=== PATIENT | female | born 1960 | race African-American/Black ===

== ENCOUNTER 2017-02-13 18:04 | Inpatient (IN) | payer OTHER ==
[2017-02-13 19:03] VITALS: BMI 29.3
[2017-02-13] MEDS ORDERED: METHADONE HCL 10 MG TABLET (FOR DETOX USE ONLY) PO ONE ×2 (19:15→23:00)
[2017-02-13] MEDS ORDERED: ACETAMINOPHEN 325 MG TABLET (FP) PO PRN (19:15)
[2017-02-13] MEDS ORDERED: MAGNESIUM HYDROX 2400MG/30ML ORAL SUSPENSION 30 ML CUP PO PRN (19:15)
[2017-02-13] MEDS ORDERED: MAG HYDROX/AL HYDROX/SIMETH 30 ML UNIT-DOSE CUP PO PRN (19:15)
[2017-02-13] MEDS ORDERED: MENTHOL/PHENOL 1 EACH UD MM PRN (19:15)
[2017-02-13] MEDS ORDERED: MAGNESIUM CITRATE 300 ML BOTTLE PO PRN (19:15)
[2017-02-13] MEDS ORDERED: guaiFENesin/D-METHORPHAN HB 10 ML UNIT-DOSE CUPS PO PRN (19:15)
[2017-02-13] MEDS ORDERED: P-EPHED 60MG/TRIPROLIDI 2.5MG TABLET PO PRN (19:15)
[2017-02-13] MEDS ORDERED: LOPERAMIDE HCL 2 MG CAPSULE PO PRN (19:15)
[2017-02-13] MEDS ORDERED: ALBUTEROL SO4 6.7 GM HFA INHALER IH PRN (19:19)
[2017-02-13] MEDS ORDERED: ALBUTEROL SO4 2.5/IPRATROPIUM 0.5 INH SOL 3 ML VIAL.NEB. NEB PRN (19:20)
--- NOTE | 2017-02-13 19:31 | HP ---
COWS - Scale Resting Pulse: 2= [place] 101-120 Sweatin= Chills/Flushing Restless Observation: 1= Difficult to Sit Still Pupil Size: 0= Normal to Room Light Bone or Joint Aches: 2= Severe Diffuse Aches Runny Nose/ Eye Tearin= Nasal Congestion GI Upset > 30mins: 3= Vomiting/Diarrhea Tremor Observation: 2= Slight Tremor Visible Yawning Observation: 0= None Anxiety or Irritability: 2=Irritable/Anxious Goose Flesh Skin: 0=Smooth Skin COWS Score: 14 Admission ROS S - HPI Chief Complaint: withdrawal sx patient reported right foot 2nd and 3rd toes fx on 02/03/17, left cane / walker at home, 2006 first detox second detox "I do not remember" never rehab, on disability since 2014, Allergies/Adverse Reactions: Allergies Allergy/AdvReac Type Severity Reaction Status Date / Time pistachio nut Allergy Severe Rash Verified 02/13/17 18:54 No Known Drug Allergies Allergy Verified 02/13/17 18:54 LATEX Allergy Severe Itching Uncoded 02/13/17 18:54 History of Present Illness: 56 years old female with long history of opium dependence has hypertension, history of diabetes last metformin 2014, history of hepatitis c no treatment " it went away", hyperlipidemia, hypertension and gerd, patient preferred taking anything at night before bed "I always take my medication at night" Exam Limitations: No Limitations - Ebola screening Have you traveled outside of the country in the last 21 days: No Have you had contact with anyone from an Ebola affected area: No Have you been sick,other than usual withdrawal symptoms: No Do you have a fever: No - Review of Systems Constitutional: Chills, Changes in sleep, Weight Stable EENT: reports: No Symptoms Reported Respiratory: reports: No Symptoms reported Cardiac: reports: No Symptoms Reported GI: reports: Nausea, Poor Fluid Intake, Vomiting, Indigestion, Abdominal cramping : reports: No Symptoms Reported Musculoskeletal: reports: Back Pain, Joint Pain, Muscle Pain, Neck Pain Integumentary: reports: Lesions (left inner leg 08/2016 single) Neuro: reports: Tremors Endocrine: reports: No Symptoms Reported Hematology: reports: No Symptoms Reported Psychiatric: reports: Judgement Intact, Orientated x3, Depressed Other Systems: Reviewed and Negative Patient History - Patient Medical History Hx Anemia: No Hx Asthma: Yes Hx Chronic Obstructive Pulmonary Disease (COPD): No Hx Cancer: Yes (left breast 2012) Hx Cardiac Disorders: No Hx Congestive Heart Failure: No Hx Hypertension: Yes (x 5 years aspirin) Hx Hypercholesterolemia: Yes Hx Pacemaker: No HX Cerebrovascular Accident: No Hx Seizures: No Hx Dementia: No Hx Diabetes: Yes (x 3 years treated with metformin last dose 2014) Hx Gastrointestinal Disorders: Yes (gerd) Hx Liver Disease: No Hx Genitourinary Disorders: No Hx Sexually Transmitted Disorders: No Hx Renal Disease (ESRD): No Hx Thyroid Disease: No Hx Human Immunodeficiency Virus (HIV): No Hx Hepatitis C: Yes Hx Depression: Yes Hx Suicide Attempt: No Hx Bipolar Disorder: No Hx Schizophrenia: No - Patient Surgical History Past Surgical History: Yes Hx Neurologic Surgery: No Hx Cataract Extraction: No Hx Cardiac Surgery: No Hx Lung Surgery: No Hx Breast Surgery: Yes (left 2012 ) Hx Breast Biopsy: Yes (left 2012) Hx Abdominal Surgery: No Hx Appendectomy: No Hx Cholecystectomy: No Hx Genitourinary Surgery: No Hx Orthopedic Surgery: No Anesthesia Reaction: No - PPD History Previous Implant?: Yes Documented Results: Negative w/o proof Implanted On Prior [facility] Admission?: No PPD to be Administered?: Yes - Reproductive History Patient is a Female of Child Bearing Age (11 -55 yrs old): No Last Menstrual Period: 02/13/07 Patient : No - Smoking Cessation Smoking history: Never smoked Have you smoked in the past 12 months: No Hx Chewing Tobacco Use: No Initiated information on smoking cessation: No - Substance & Tx. History Hx Alcohol Use: No Hx Substance Use: Yes Substance Use Type: Heroin, Opiates Hx Substance Use Treatment: Yes (2006 [facility]) - Substances Abused oxycodon Route: Oral Frequency: Daily Amount used: 100 mg Age of first use: 49 Date of Last Use: 02/12/17 percocet Route: Oral Frequency: Daily Amount used: 100 mg Age of first use: 55 Date of Last Use: 02/12/17 Oxycodone Route: Oral Frequency: Daily Amount used: 100mg Age of first use: 52 Date of Last Use: 02/12/17 morphine sulfate Route: Oral Frequency: Daily Amount used: 4 of 60mg Age of first use: 55 Date of Last Use: 02/12/17 Family Disease History - Family Disease History Family Disease History: CA: Father (), Mother () Admission Physical Exam S - Vital Signs Vital Signs: Vital Signs - 24 hr 02/13/17 18:57 Temperature 97.0 F L Pulse Rate 109 H Respiratory 20 Rate Blood Pressure 131/101 - Physical General Appearance: Yes: Appropriately Dressed, Mild Distress, Obese, Tremorous , Irritable, Sweating, Anxious HEENTM: Yes: Hearing grossly Normal, Normal ENT Inspection, Normocephalic, Normal Voice Respiratory: Yes: Chest Non-Tender, Lungs Clear, Normal Breath Sounds, No Respiratory Distress, No Accessory Muscle Use Neck: Yes: Supple, Trachea in good position Breast: Yes: Breasts Symetrical Cardiology: Yes: Regular Rhythm, S1, S2, Tachycardia Abdominal: Yes: Non Tender, Soft Genitourinary: Yes: Within Normal Limits Back: Yes: Normal Inspection Musculoskeletal: Yes: Gait Steady, Back pain, Muscle Pain, Muscle weakness ( right foot 2nd and 3rd toes fx on 02/03/17 treated at [facility] discharged with cane and [place]) Extremities: Yes: Non-Tender, Tremors, Other (right foot [place]) Neurological: Yes: Fully Oriented, Alert, Normal Response, Depressed Affect Integumentary: Yes: Warm, Rash (old left inner leg - singles) Lymphatic: Yes: Within Normal Limits - Diagnostic (1) Opioid dependence with withdrawal Current Visit: Yes Status: Acute (2) Hypertension Current Visit: Yes Status: Chronic Qualifiers: Hypertension type: essential hypertension Qualified Code(s): I10 - Essential (primary) hypertension (3) History of diabetes mellitus, type II Current Visit: Yes Status: Resolved (4) GERD (gastroesophageal reflux disease) Current Visit: Yes Status: Chronic Qualifiers: Esophagitis presence: without esophagitis Qualified Code(s): K21.9 - Gastro-esophageal reflux disease without esophagitis (5) History of hepatitis C Current Visit: Yes Status: Resolved (6) Depression Current Visit: Yes Status: Suspected Qualifiers: Depression Type: dysthymia Qualified Code(s): F34.1 - Dysthymic disorder (7) Asthma Current Visit: Yes Status: Chronic Qualifiers: Asthma severity: mild intermittent Asthma complication type: with status asthmaticus Qualified Code(s): J45.22 - Mild intermittent asthma with status asthmaticus (8) Hyperlipidemia Current Visit: Yes Status: Chronic Qualifiers: Hyperlipidemia type: pure hypercholesterolemia Qualified Code(s): E78.00 - Pure hypercholesterolemia, unspecified; E78.0 - Pure hypercholesterolemia (9) Neuropathy of leg Current Visit: Yes Status: Chronic Qualifiers: Laterality: bilateral Qualified Code(s): G57.93 - Unspecified mononeuropathy of bilateral lower limbs (10) Use of cane as ambulatory aid Current Visit: Yes Status: Acute Comment: fx right foot 2nd 3rd toes on 02/03/17 Cleared for Admission [facility] - Detox or Rehab [facility] Level of Care: Medically Managed Detox Regimen/Protocol: Methadone [facility] Breath Alcohol Content Breath Alcohol Content: 0 Urine Pregancy Test - Result Urine Test Results: Negative- NO Line Present Urine Drug Screen - Results Urine Drug Screen Results: OPI-Opiates, MET-Methamphetamine, TCA-Tricyclic Antidepress, OXY-Oxycodone
[2017-02-13] MEDS: diazePAM 5 MG TABLET PO PRN (20:19)
[2017-02-13] MEDS ORDERED: ATORVASTATIN CA 20 MG TABLET (FP) PO SCH (22:00)
[2017-02-13] MEDS ORDERED: MONTELUKAST NA 10 MG TABLET PO SCH (22:00)
[2017-02-13] MEDS: RANITIDINE HCL 150 MG TABLET (FP) PO SCH (22:27)
[2017-02-13] MEDS: THIAMINE HCL 100 MG TABLET (FP) PO SCH (22:27)
[2017-02-13] MEDS: ASPIRIN 81 MG CHEWABLE TABLETS PO SCH (22:27)
[2017-02-13] MEDS: GABAPENTIN 100 MG CAPSULE (FP) PO SCH (22:27)
[2017-02-13] MEDS: diphenhydrAMINE HCL 50 MG CAPSULE PO PRN (22:28)
[2017-02-14] MEDS: diazePAM 5 MG TABLET PO PRN ×3 (07:03→17:52)
--- NOTE | 2017-02-14 08:55 | PN ---
BHS COWS - Scale Resting Pulse: 1= [place] 81-100 Sweatin=Flushed/Facial Moisture Restless Observation: 1= Difficult to Sit Still Pupil Size: 0= Normal to Room Light Bone or Joint Aches: 2= Severe Diffuse Aches Runny Nose/ Eye Tearin= Runny Nose/Eyes GI Upset > 30mins: 2= Nausea/Diarrhea Tremor Observation of Outstretched Hands: 2= Slight Tremor Visible Yawning Observation: 0= None Anxiety or Irritability: 2=Irritable/Anxious Goose Flesh Skin: 0=Smooth Skin COWS Score: 14 BHS Progress Note (SOAP) Subjective: severe pain,sweating,anxiety,restless,interrupted sleep. Objective: 02/14/17 08:54 Vital Signs - 8 hr 02/14/17 06:16 Temperature 97.9 F Pulse Rate 85 Respiratory 18 Rate Blood Pressure 114/76 Labs pending Assessment: 02/14/17 08:54 Withdrawal sx. Plan: Continue detox Motrin 800mg bid
--- NOTE | 2017-02-14 09:09 | CONSULT ---
[facility] Psychiatric Consult - Data Date of interview: 02/14/17 Admission source: [facility] Identifying data: This is 56 years old female anbulating with cane, with no psychiatric hospitalization history intoxicated with: Opioids, Methamphetamins Substance Abuse History: - Smoking Cessation. Smoking history: Never smoked. Have you smoked in the past 12 months: No. Hx Chewing Tobacco Use: No. Initiated information on smoking cessation: No. - Substance & Tx. History. Hx Alcohol Use: No. Hx Substance Use: Yes. Substance Use Type: Heroin, Opiates. Hx Substance Use Treatment: Yes (2006 [facility]). - Substances Abused. oxycodon. Route: Oral. Frequency: Daily. Amount used: 100 mg. Age of first use: 49. Date of Last Use: 02/12/17. percocet. Route: Oral. Frequency: Daily. Amount used: 100 mg. Age of first use: 55. Date of Last Use : 02/12/17. Oxycodone. Route: Oral. Frequency: Daily. Amount used: 100mg. Age of first use: 52. Date of Last Use: 02/12/17. morphine sulfate. Route: Oral. Frequency: Daily. Amount used: 4 of 60mg. Age of first use: 55. Date of Last Use: 02/12/17 Medical History: HepC+, Asthma, GERD, Hyperlipidemia, HTN, DM-2 Psychiatric History: Patient reports history of depression, reports taking prior to admission: Cymbalta 60mg poqd. Gabapentin 200mg po bid Physical/Sexual Abuse/Trauma History: Denies Additional Comment: Cymbalta 60mg poqd. Gabapentin 200mg po bid Mental Status Exam - Mental Status Exam Alert and Oriented to: Person Cognitive Function: Fair Patient Appearance: Unkempt Mood: Euthymic Affect: Mood Congruent Patient Behavior: Cooperative Speech Pattern: Appropriate Voice Loudness: Normal Thought Process: Goal Oriented Thought Disorder: Being Controlled Hallucinations: Denies Suicidal Ideation: Denies Homicidal Ideation: Denies Insight/Judgement: Fair Sleep: Difficulty falling asleep Appetite: Weight gain Muscle strength/Tone: Clonus Gait/Station: Other Additional Comments: Cymbalta 60mg poqd. Gabapentin 200mg po bid Psychiatric Findings - Problem List ([place] 1, 2,3) (1) Opioid dependence with withdrawal Current Visit: Yes Status: Acute (2) Amphetamine abuse Current Visit: Yes Status: Acute (3) Drug-induced mood disorder Current Visit: Yes Status: Acute - Initial Treatment Plan Initial Treatment Plan: Cymbalta 60mg poqd. Gabapentin 200mg po bid
[2017-02-14 09:59] LABS: MCH 27.7 pg (25.7-33.7); MCHC 31.8 g/dl (32.0-36.0); MEAN CELL VOLUME 87.3 fl (80-96); MEAN PLT VOLUME 8.5 fl (7.5-11.1); PLATELET COUNT 347 K/MM3 (134-434); RDW 14.1 % (11.6-15.6); WHITE BLOOD COUNT 8.8 K/mm3 (4.0-10.0)
[2017-02-14] MEDS ORDERED: METHADONE HCL 10 MG TABLET (FOR DETOX USE ONLY) PO ONE (10:00)
[2017-02-14] MEDS: GABAPENTIN 100 MG CAPSULE (FP) PO SCH ×2 (10:01→22:29)
[2017-02-14] MEDS: PRENATAL VITAMINS W/ FOLIC ACID TABLET (FP) PO SCH (10:01)
[2017-02-14] MEDS: RANITIDINE HCL 150 MG TABLET (FP) PO SCH ×2 (10:01→22:30)
[2017-02-14] MEDS: IBUPROFEN 400 MG TABLET (FP) PO SCH ×2 (10:03→17:49)
[2017-02-14 10:14] LABS: ALBUMIN 3.6 g/dl (3.4-5.0); ALK PHOS 99 U/L (45-117); ANION GAP 4 (8-16); BILIRUBIN,TOTAL 0.4 mg/dL (0.2-1.0); CALCIUM 9.3 mg/dL (8.5-10.1); CO2 36 mmol/L (21-32); CREATININE 0.7 mg/dL (0.55-1.02); GLUCOSE,RANDOM 116 mg/dL (74-106); SGOT/AST 12 U/L (15-37); SGPT/ALT 19 U/L (12-78); TOT PROT 7.7 g/dl (6.4-8.2)
[2017-02-14] MEDS: DULoxetine HCL 60 MG CAPSULE.DR PO SCH (10:48)
[2017-02-14] MEDS: LOSARTAN POTASSIUM 25 MG TABLET PO SCH (10:48)
[2017-02-14 11:40] LABS: HIV 1 & 2 AB NEGATIVE; HIV 1 AGp24 NEGATIVE
[2017-02-14 14:40] LABS: URINE APPEARANCE SLCLOUDY; URINE BILIRUBIN NEGATIVE (NEGATIVE); URINE BLOOD NEGATIVE (NEGATIVE); URINE COLOR YELLOW; URINE GLUCOSE (UA) NEGATIVE (NEGATIVE); URINE KETONE NEGATIVE (NEGATIVE); URINE NITRITE NEGATIVE (NEGATIVE); URINE PROTEIN NEGATIVE (NEGATIVE); URINE UROBILINOGEN NEGATIVE mg/dL (0.2-1.0)
[2017-02-14 14:52] LABS: URINE LEUK ESTERASE 2+ (NEGATIVE)
[2017-02-14 14:58] LABS: CALCIUM OXALATE CRYSTALS MODERATE /hpf (NONE SEEN); URINE BACTERIA RARE /hpf (NONE SEEN); URINE HYALINE CAST 1 /lpf; URINE MUCUS MODERATE; URINE RBC 11 /hpf (0-3); URINE WBC 16 /hpf (3-5)
--- NOTE | 2017-02-14 16:06 | EKG ---
Test Reason : Blood Pressure : / mmHG Vent. Rate : 090 BPM Atrial Rate : 090 BPM P-R Int : 156 ms QRS Dur : 064 ms QT Int : 376 ms P-R-T Axes : 059 067 061 degrees QTc Int : 459 ms NORMAL SINUS RHYTHM NONSPECIFIC T WAVE ABNORMALITY ABNORMAL ECG NO PREVIOUS ECGS AVAILABLE Confirmed by PAO KLEIN MD ([id number]) on 02/14/2017 4:06:16 PM Referred By: Confirmed By:PAO KLEIN MD
[2017-02-14] MEDS ORDERED: amLODIPine BESYLATE 5 MG TABLET (FP) PO SCH (22:00)
[2017-02-14] MEDS: ATORVASTATIN CA 20 MG TABLET (FP) PO SCH (22:28)
[2017-02-14] MEDS: amLODIPine BESYLATE 5 MG TABLET (FP) PO SCH (22:28)
[2017-02-14] MEDS: THIAMINE HCL 100 MG TABLET (FP) PO SCH (22:28)
[2017-02-14] MEDS: MONTELUKAST NA 10 MG TABLET PO SCH (22:28)
[2017-02-14] MEDS: diphenhydrAMINE HCL 50 MG CAPSULE PO PRN (22:29)
[2017-02-14] MEDS: ASPIRIN 81 MG CHEWABLE TABLETS PO SCH (22:29)
[2017-02-15] MEDS ORDERED: METHADONE HCL 5 MG TABLET (FOR DETOX USE ONLY) PO ONE (10:00)
[2017-02-15] MEDS: PRENATAL VITAMINS W/ FOLIC ACID TABLET (FP) PO SCH (10:07)
[2017-02-15] MEDS: GABAPENTIN 100 MG CAPSULE (FP) PO SCH ×2 (10:07→22:08)
[2017-02-15] MEDS: IBUPROFEN 400 MG TABLET (FP) PO SCH ×2 (10:09→17:23)
[2017-02-15] MEDS: RANITIDINE HCL 150 MG TABLET (FP) PO SCH ×2 (10:09→22:08)
[2017-02-15] MEDS: DULoxetine HCL 60 MG CAPSULE.DR PO SCH (10:09)
[2017-02-15] MEDS: LOSARTAN POTASSIUM 25 MG TABLET PO SCH (10:11)
--- NOTE | 2017-02-15 10:16 | PN ---
BHS COWS - Scale Resting Pulse: 2= NE 101-120 Sweatin= Chills/Flushing Restless Observation: 3= Extraneous Movement Pupil Size: 2= Moderately Dilated Bone or Joint Aches: 4=Acute Joint/Muscle Pain Runny Nose/ Eye Tearin= Nasal Congestion GI Upset > 30mins: 0= None Tremor Observation of Outstretched Hands: 1= Tremor [place], Not Seen Yawning Observation: 1= 1-2x During Session Anxiety or Irritability: 2=Irritable/Anxious Goose Flesh Skin: 0=Smooth Skin COWS Score: 17 BHS Progress Note (SOAP) Subjective: ANXIETY, SWEATS, BODY ACHES. Objective: 02/15/17 10:17 Vital Signs Temperature 97.2 F L 02/15/17 06:22 Pulse Rate 102 H 02/15/17 06:22 Respiratory Rate 20 02/15/17 06:22 Blood Pressure 136/81 02/15/17 06:22 O2 Sat by Pulse Oximetry (%) Laboratory Last Values WBC 8.8 K/mm3 (4.0-10.0) 02/14/17 06:30 RBC 4.49 M/mm3 (3.60-5.2) 02/14/17 06:30 Hgb 12.4 GM/dL (10.7-15.3) 02/14/17 06:30 Hct 39.2 % (32.4-45.2) 02/14/17 06:30 MCV 87.3 fl (80-96) 02/14/17 06:30 MCH 27.7 pg (25.7-33.7) 02/14/17 06:30 MCHC 31.8 g/dl (32.0-36.0) L 02/14/17 06:30 RDW 14.1 % (11.6-15.6) 02/14/17 06:30 Plt Count 347 K/MM3 (134-434) 02/14/17 06:30 MPV 8.5 fl (7.5-11.1) 02/14/17 06:30 Sodium 140 mmol/L (136-145) 02/14/17 06:30 Potassium 4.3 mmol/L (3.5-5.1) 02/14/17 06:30 Chloride 100 mmol/L (98-107) 02/14/17 06:30 Carbon Dioxide 36 mmol/L (21-32) H 02/14/17 06:30 Anion Gap 4 (8-16) L 02/14/17 06:30 BUN 11 mg/dL (7-18) 02/14/17 06:30 Creatinine 0.7 mg/dL (0.55-1.02) 02/14/17 06:30 Creat Clearance w eGFR > 60 (>60) 02/14/17 06:30 POC Glucometer 104 UNITS (()) 02/15/17 06:04 Random Glucose 116 mg/dL (74-106) H 02/14/17 06:30 Calcium 9.3 mg/dL (8.5-10.1) 02/14/17 06:30 Total Bilirubin 0.4 mg/dL (0.2-1.0) 02/14/17 06:30 AST 12 U/L (15-37) L 02/14/17 06:30 ALT 19 U/L (12-78) 02/14/17 06:30 Alkaline Phosphatase 99 U/L (45-117) 02/14/17 06:30 Total Protein 7.7 g/dl (6.4-8.2) 02/14/17 06:30 Albumin 3.6 g/dl (3.4-5.0) 02/14/17 06:30 Urine Color Yellow 02/14/17 09:40 Urine Appearance Slcloudy 02/14/17 09:40 Urine pH 6.0 (5.0-8.0) 02/14/17 09:40 Ur Specific [place] 1.025 (1.005-1.025) 02/14/17 09:40 Urine Protein Negative (NEGATIVE) 02/14/17 09:40 Urine Glucose (UA) Negative (NEGATIVE) 02/14/17 09:40 Urine Ketones Negative (NEGATIVE) 02/14/17 09:40 Urine Blood Negative (NEGATIVE) 02/14/17 09:40 Urine Nitrite Negative (NEGATIVE) 02/14/17 09:40 Urine Bilirubin Negative (NEGATIVE) 02/14/17 09:40 Urine Urobilinogen Negative mg/dL (0.2-1.0) 02/14/17 09:40 Ur Leukocyte Esterase 2+ (NEGATIVE) H 02/14/17 09:40 Urine RBC 11 /hpf (0-3) 02/14/17 09:40 Urine WBC 16 /hpf (3-5) 02/14/17 09:40 Ur Epithelial Cells Moderate /hpf (FEW) 02/14/17 09:40 Calcium Oxalate Crystal Moderate /hpf (NONE SEEN) 02/14/17 09:40 Urine Bacteria Rare /hpf (NONE SEEN) 02/14/17 09:40 Hyaline Casts 1 /lpf 02/14/17 09:40 Urine Mucus Moderate 02/14/17 09:40 HIV 1&2 Antibody Screen Negative 02/14/17 06:30 HIV P24 Antigen Negative 02/14/17 06:30 LABS NOTED. Assessment: 02/15/17 10:18 WITHDRAWAL SX Plan: CONTINUE DETOX REPEAT UA;UC TODAY. FLEXERIL 10 MG PO Q8H PRN
[2017-02-15] MEDS: diazePAM 5 MG TABLET PO PRN ×2 (17:25→22:09)
[2017-02-15] MEDS: ASPIRIN 81 MG CHEWABLE TABLETS PO SCH (22:07)
[2017-02-15] MEDS: ATORVASTATIN CA 20 MG TABLET (FP) PO SCH (22:08)
[2017-02-15] MEDS: amLODIPine BESYLATE 5 MG TABLET (FP) PO SCH (22:08)
[2017-02-15] MEDS: diphenhydrAMINE HCL 50 MG CAPSULE PO PRN (22:08)
[2017-02-15] MEDS: THIAMINE HCL 100 MG TABLET (FP) PO SCH (22:08)
[2017-02-15] MEDS: MONTELUKAST NA 10 MG TABLET PO SCH (22:08)
[2017-02-16] MEDS ORDERED: METHADONE HCL 5 MG TABLET (FOR DETOX USE ONLY) PO ONE (10:00)
[2017-02-16] MEDS: RANITIDINE HCL 150 MG TABLET (FP) PO SCH ×2 (10:12→22:03)
[2017-02-16] MEDS: GABAPENTIN 100 MG CAPSULE (FP) PO SCH ×2 (10:12→22:03)
[2017-02-16] MEDS: diazePAM 5 MG TABLET PO PRN ×2 (10:12→17:10)
[2017-02-16] MEDS: LOSARTAN POTASSIUM 25 MG TABLET PO SCH (10:12)
[2017-02-16] MEDS: PRENATAL VITAMINS W/ FOLIC ACID TABLET (FP) PO SCH (10:12)
[2017-02-16] MEDS: CYCLOBENZAPRINE HCL 10 MG TABLET (FP) PO PRN ×2 (10:12→22:07)
[2017-02-16] MEDS: DULoxetine HCL 60 MG CAPSULE.DR PO SCH (10:13)
[2017-02-16] MEDS: IBUPROFEN 400 MG TABLET (FP) PO SCH ×2 (10:13→17:10)
--- NOTE | 2017-02-16 10:20 | PN ---
BHS Progress Note (SOAP) Subjective: Low back masood, shakes, sweats, N/V Objective: 02/16/17 10:19 Vital Signs 02/16/17 02/16/17 02/16/17 03:27 06:00 09:09 Temperature 97.9 F 98.1 F Pulse Rate 89 86 Respiratory 18 18 18 Rate Blood Pressure 115/62 115/89 Laboratory Last Values WBC 8.8 K/mm3 (4.0-10.0) 02/14/17 06:30 RBC 4.49 M/mm3 (3.60-5.2) 02/14/17 06:30 Hgb 12.4 GM/dL (10.7-15.3) 02/14/17 06:30 Hct 39.2 % (32.4-45.2) 02/14/17 06:30 MCV 87.3 fl (80-96) 02/14/17 06:30 MCH 27.7 pg (25.7-33.7) 02/14/17 06:30 MCHC 31.8 g/dl (32.0-36.0) L 02/14/17 06:30 RDW 14.1 % (11.6-15.6) 02/14/17 06:30 Plt Count 347 K/MM3 (134-434) 02/14/17 06:30 MPV 8.5 fl (7.5-11.1) 02/14/17 06:30 Sodium 140 mmol/L (136-145) 02/14/17 06:30 Potassium 4.3 mmol/L (3.5-5.1) 02/14/17 06:30 Chloride 100 mmol/L (98-107) 02/14/17 06:30 Carbon Dioxide 36 mmol/L (21-32) H 02/14/17 06:30 Anion Gap 4 (8-16) L 02/14/17 06:30 BUN 11 mg/dL (7-18) 02/14/17 06:30 Creatinine 0.7 mg/dL (0.55-1.02) 02/14/17 06:30 Creat Clearance w eGFR > 60 (>60) 02/14/17 06:30 POC Glucometer 106 UNITS (()) 02/16/17 06:14 Random Glucose 116 mg/dL (74-106) H 02/14/17 06:30 Calcium 9.3 mg/dL (8.5-10.1) 02/14/17 06:30 Total Bilirubin 0.4 mg/dL (0.2-1.0) 02/14/17 06:30 AST 12 U/L (15-37) L 02/14/17 06:30 ALT 19 U/L (12-78) 02/14/17 06:30 Alkaline Phosphatase 99 U/L (45-117) 02/14/17 06:30 Total Protein 7.7 g/dl (6.4-8.2) 02/14/17 06:30 Albumin 3.6 g/dl (3.4-5.0) 02/14/17 06:30 Urine Color Yellow 02/14/17 09:40 Urine Appearance Slcloudy 02/14/17 09:40 Urine pH 6.0 (5.0-8.0) 02/14/17 09:40 Ur Specific [place] 1.025 (1.005-1.025) 02/14/17 09:40 Urine Protein Negative (NEGATIVE) 02/14/17 09:40 Urine Glucose (UA) Negative (NEGATIVE) 02/14/17 09:40 Urine Ketones Negative (NEGATIVE) 02/14/17 09:40 Urine Blood Negative (NEGATIVE) 02/14/17 09:40 Urine Nitrite Negative (NEGATIVE) 02/14/17 09:40 Urine Bilirubin Negative (NEGATIVE) 02/14/17 09:40 Urine Urobilinogen Negative mg/dL (0.2-1.0) 02/14/17 09:40 Ur Leukocyte Esterase 2+ (NEGATIVE) H 02/14/17 09:40 Urine RBC 11 /hpf (0-3) 02/14/17 09:40 Urine WBC 16 /hpf (3-5) 02/14/17 09:40 Ur Epithelial Cells Moderate /hpf (FEW) 02/14/17 09:40 Calcium Oxalate Crystal Moderate /hpf (NONE SEEN) 02/14/17 09:40 Urine Bacteria Rare /hpf (NONE SEEN) 02/14/17 09:40 Hyaline Casts 1 /lpf 02/14/17 09:40 Urine Mucus Moderate 02/14/17 09:40 RPR Titer Nonreactive (NONREACTIVE) 02/14/17 06:30 HIV 1&2 Antibody Screen Negative 02/14/17 06:30 HIV P24 Antigen Negative 02/14/17 06:30 Labs noted, repeat UA pending Assessment: 02/16/17 10:19 withdrawal sx Plan: continue detox
[2017-02-16 10:29] LABS: URINE APPEARANCE CLEAR; URINE BILIRUBIN NEGATIVE (NEGATIVE); URINE BLOOD NEGATIVE (NEGATIVE); URINE COLOR LTYELLOW; URINE GLUCOSE (UA) 1+ (NEGATIVE); URINE KETONE NEGATIVE (NEGATIVE); URINE LEUK ESTERASE NEGATIVE (NEGATIVE); URINE NITRITE NEGATIVE (NEGATIVE); URINE PROTEIN NEGATIVE (NEGATIVE); URINE UROBILINOGEN NEGATIVE mg/dL (0.2-1.0)
[2017-02-16] MEDS: THIAMINE HCL 100 MG TABLET (FP) PO SCH (22:03)
[2017-02-16] MEDS: MONTELUKAST NA 10 MG TABLET PO SCH (22:03)
[2017-02-16] MEDS: ASPIRIN 81 MG CHEWABLE TABLETS PO SCH (22:03)
[2017-02-16] MEDS: ATORVASTATIN CA 20 MG TABLET (FP) PO SCH (22:03)
[2017-02-16] MEDS: amLODIPine BESYLATE 5 MG TABLET (FP) PO SCH (22:04)
[2017-02-16] MEDS: diphenhydrAMINE HCL 50 MG CAPSULE PO PRN (22:05)
[2017-02-17] MEDS ORDERED: METHADONE HCL 10 MG TABLET (FOR DETOX USE ONLY) PO ONE (10:00)
[2017-02-17] MEDS: CYCLOBENZAPRINE HCL 10 MG TABLET (FP) PO PRN (10:05)
[2017-02-17] MEDS: RANITIDINE HCL 150 MG TABLET (FP) PO SCH ×2 (10:05→22:32)
[2017-02-17] MEDS: GABAPENTIN 100 MG CAPSULE (FP) PO SCH ×2 (10:05→22:32)
[2017-02-17] MEDS: LOSARTAN POTASSIUM 25 MG TABLET PO SCH (10:05)
[2017-02-17] MEDS: DULoxetine HCL 60 MG CAPSULE.DR PO SCH (10:05)
[2017-02-17] MEDS: PRENATAL VITAMINS W/ FOLIC ACID TABLET (FP) PO SCH (10:05)
[2017-02-17] MEDS: IBUPROFEN 400 MG TABLET (FP) PO SCH ×2 (10:06→18:41)
--- NOTE | 2017-02-17 16:30 | PN ---
S Progress Note (SOAP) Subjective: Generalized body aches, sweating, interrupted sleep. Patient reported pmhx of DMT2 and was taking metformin in the past. She is aware of her hyperglycemia result and agreed to resume metformin. She requested ensure due to regurgitation from the food but aware she can only have glucerna due to her diabetes. Patient agreed to have glucerna and continue PPI. Objective: 02/17/17 16:27 Last Vital Signs Temp Pulse Resp BP Pulse Ox 97.3 F L 107 H 18 112/87 02/17/17 13:46 02/17/17 13:46 02/17/17 13:46 02/17/17 13:46 Laboratory Tests 02/13/17 02/14/17 02/14/17 19:30 06:30 06:30 WBC 8.8 RBC 4.49 Hgb 12.4 Hct 39.2 MCV 87.3 MCH 27.7 MCHC 31.8 L RDW 14.1 Plt Count 347 MPV 8.5 Sodium 140 Potassium 4.3 Chloride 100 Carbon Dioxide 36 H Anion Gap 4 L BUN 11 Creatinine 0.7 Creat Clearance w eGFR > 60 POC Glucometer 105 Random Glucose 116 H Calcium 9.3 Total Bilirubin 0.4 AST 12 L ALT 19 Alkaline Phosphatase 99 Total Protein 7.7 Albumin 3.6 Urine Color Urine Appearance Urine pH Ur Specific [place] Urine Protein Urine Glucose (UA) Urine Ketones Urine Blood Urine Nitrite Urine Bilirubin Urine Urobilinogen Ur Leukocyte Esterase Urine RBC Urine WBC Ur Epithelial Cells Calcium Oxalate Crystal Urine Bacteria Hyaline Casts Urine Mucus RPR Titer HIV 1&2 Antibody Screen HIV P24 Antigen 02/14/17 02/14/17 02/14/17 06:30 06:30 09:40 WBC RBC Hgb Hct MCV MCH MCHC RDW Plt Count MPV Sodium Potassium Chloride Carbon Dioxide Anion Gap BUN Creatinine Creat Clearance w eGFR POC Glucometer Random Glucose Calcium Total Bilirubin AST ALT Alkaline Phosphatase Total Protein Albumin Urine Color Yellow Urine Appearance Slcloudy Urine pH 6.0 Ur Specific [place] 1.025 Urine Protein Negative Urine Glucose (UA) Negative Urine Ketones Negative Urine Blood Negative Urine Nitrite Negative Urine Bilirubin Negative Urine Urobilinogen Negative Ur Leukocyte Esterase 2+ H Urine RBC 11 Urine WBC 16 Ur Epithelial Cells Moderate Calcium Oxalate Crystal Moderate Urine Bacteria Rare Hyaline Casts 1 Urine Mucus Moderate RPR Titer Nonreactive HIV 1&2 Antibody Screen Negative HIV P24 Antigen Negative 02/15/17 02/15/17 02/16/17 06:04 16:29 06:14 WBC RBC Hgb Hct MCV MCH MCHC RDW Plt Count MPV Sodium Potassium Chloride Carbon Dioxide Anion Gap BUN Creatinine Creat Clearance w eGFR POC Glucometer 104 122 106 Random Glucose Calcium Total Bilirubin AST ALT Alkaline Phosphatase Total Protein Albumin Urine Color Urine Appearance Urine pH Ur Specific [place] Urine Protein Urine Glucose (UA) Urine Ketones Urine Blood Urine Nitrite Urine Bilirubin Urine Urobilinogen Ur Leukocyte Esterase Urine RBC Urine WBC Ur Epithelial Cells Calcium Oxalate Crystal Urine Bacteria Hyaline Casts Urine Mucus RPR Titer HIV 1&2 Antibody Screen HIV P24 Antigen 02/16/17 02/16/17 02/17/17 07:20 16:22 06:35 WBC RBC Hgb Hct MCV MCH MCHC RDW Plt Count MPV Sodium Potassium Chloride Carbon Dioxide Anion Gap BUN Creatinine Creat Clearance w eGFR POC Glucometer 181 105 Random Glucose Calcium Total Bilirubin AST ALT Alkaline Phosphatase Total Protein Albumin Urine Color Ltyellow Urine Appearance Clear Urine pH 7.0 Ur Specific [place] 1.015 Urine Protein Negative Urine Glucose (UA) 1+ H Urine Ketones Negative Urine Blood Negative Urine Nitrite Negative Urine Bilirubin Negative Urine Urobilinogen Negative Ur Leukocyte Esterase Negative Urine RBC Urine WBC Ur Epithelial Cells Calcium Oxalate Crystal Urine Bacteria Hyaline Casts Urine Mucus RPR Titer HIV 1&2 Antibody Screen HIV P24 Antigen Labs noted: UA: 1+ glucose Assessment: 02/17/17 16:28 Withdrawal symptoms Noted with hyperglycemia and glycosuria due to DMT2 Plan: Continue detox Hyperglycemia and glycosuria due to DMT2: resume metformin 500mg PO bid, glucerna 1 can PO bid, continue fingerstick glucose ac meal with sliding scale insulin novolog
[2017-02-17] MEDS: INSULIN SLIDING SCALE (NOVOLOG) 1 VIAL SQ SCH (16:45)
[2017-02-17] MEDS: metFORMIN HCL 500 MG TABLET (FP) PO SCH (18:41)
[2017-02-17] MEDS: ATORVASTATIN CA 20 MG TABLET (FP) PO SCH (22:31)
[2017-02-17] MEDS: ASPIRIN 81 MG CHEWABLE TABLETS PO SCH (22:31)
[2017-02-17] MEDS: diphenhydrAMINE HCL 50 MG CAPSULE PO PRN (22:32)
[2017-02-17] MEDS: MONTELUKAST NA 10 MG TABLET PO SCH (22:32)
[2017-02-17] MEDS: amLODIPine BESYLATE 5 MG TABLET (FP) PO SCH (22:32)
[2017-02-17] MEDS: THIAMINE HCL 100 MG TABLET (FP) PO SCH (22:32)
[2017-02-18] MEDS ORDERED: METHADONE HCL 5 MG TABLET (FOR DETOX USE ONLY) PO ONE (06:00)
[2017-02-18 06:18] VITALS: BP 120/76; PULSE 85; TEMP 98.1
[2017-02-18] MEDS: INSULIN SLIDING SCALE (NOVOLOG) 1 VIAL SQ SCH (06:59)
[2017-02-18] MEDS: metFORMIN HCL 500 MG TABLET (FP) PO SCH (06:59)
--- NOTE | 2017-02-18 12:30 | DS ---
[facility] Detox Discharge Summary Admission Date: 02/13/17 Discharge Date: 02/18/17 - History Present History: Opioid Dependence Additional Comments: DETOX COMPLETED AND D/C'D EARLIER TODAY. REFERRED TO FOLLOW UP AT [facility] NEEDED. Pertinent Past History: HYPERLIPIDEMIA HTN NEUROPATHY LEG USE OF CANE - Physical Exam Results Vital Signs: Vital Signs Temperature 98.1 F 02/18/17 06:00 Pulse Rate 85 02/18/17 06:00 Respiratory Rate 18 02/18/17 06:00 Blood Pressure 120/76 02/18/17 06:00 O2 Sat by Pulse Oximetry (%) Pertinent Admission Physical Exam Findings: WITHDRAWAL SX Laboratory Last Values WBC 8.8 K/mm3 (4.0-10.0) 02/14/17 06:30 RBC 4.49 M/mm3 (3.60-5.2) 02/14/17 06:30 Hgb 12.4 GM/dL (10.7-15.3) 02/14/17 06:30 Hct 39.2 % (32.4-45.2) 02/14/17 06:30 MCV 87.3 fl (80-96) 02/14/17 06:30 MCH 27.7 pg (25.7-33.7) 02/14/17 06:30 MCHC 31.8 g/dl (32.0-36.0) L 02/14/17 06:30 RDW 14.1 % (11.6-15.6) 02/14/17 06:30 Plt Count 347 K/MM3 (134-434) 02/14/17 06:30 MPV 8.5 fl (7.5-11.1) 02/14/17 06:30 Sodium 140 mmol/L (136-145) 02/14/17 06:30 Potassium 4.3 mmol/L (3.5-5.1) 02/14/17 06:30 Chloride 100 mmol/L (98-107) 02/14/17 06:30 Carbon Dioxide 36 mmol/L (21-32) H 02/14/17 06:30 Anion Gap 4 (8-16) L 02/14/17 06:30 BUN 11 mg/dL (7-18) 02/14/17 06:30 Creatinine 0.7 mg/dL (0.55-1.02) 02/14/17 06:30 Creat Clearance w eGFR > 60 (>60) 02/14/17 06:30 POC Glucometer 113 UNITS (()) 02/18/17 05:54 Random Glucose 116 mg/dL (74-106) H 02/14/17 06:30 Calcium 9.3 mg/dL (8.5-10.1) 02/14/17 06:30 Total Bilirubin 0.4 mg/dL (0.2-1.0) 02/14/17 06:30 AST 12 U/L (15-37) L 02/14/17 06:30 ALT 19 U/L (12-78) 02/14/17 06:30 Alkaline Phosphatase 99 U/L (45-117) 02/14/17 06:30 Total Protein 7.7 g/dl (6.4-8.2) 02/14/17 06:30 Albumin 3.6 g/dl (3.4-5.0) 02/14/17 06:30 Urine Color Ltyellow 02/16/17 07:20 Urine Appearance Clear 02/16/17 07:20 Urine pH 7.0 (5.0-8.0) 02/16/17 07:20 Ur Specific [place] 1.015 (1.005-1.025) 02/16/17 07:20 Urine Protein Negative (NEGATIVE) 02/16/17 07:20 Urine Glucose (UA) 1+ (NEGATIVE) H 02/16/17 07:20 Urine Ketones Negative (NEGATIVE) 02/16/17 07:20 Urine Blood Negative (NEGATIVE) 02/16/17 07:20 Urine Nitrite Negative (NEGATIVE) 02/16/17 07:20 Urine Bilirubin Negative (NEGATIVE) 02/16/17 07:20 Urine Urobilinogen Negative mg/dL (0.2-1.0) 02/16/17 07:20 Ur Leukocyte Esterase Negative (NEGATIVE) 02/16/17 07:20 Urine RBC 11 /hpf (0-3) 02/14/17 09:40 Urine WBC 16 /hpf (3-5) 02/14/17 09:40 Ur Epithelial Cells Moderate /hpf (FEW) 02/14/17 09:40 Calcium Oxalate Crystal Moderate /hpf (NONE SEEN) 02/14/17 09:40 Urine Bacteria Rare /hpf (NONE SEEN) 02/14/17 09:40 Hyaline Casts 1 /lpf 02/14/17 09:40 Urine Mucus Moderate 02/14/17 09:40 RPR Titer Nonreactive (NONREACTIVE) 02/14/17 06:30 HIV 1&2 Antibody Screen Negative 02/14/17 06:30 HIV P24 Antigen Negative 02/14/17 06:30 - Treatment Hospital Course: Detox Protocol Followed, Detoxed Safely, Responded well, Discharged Condition Good Patient has Accepted a Rehab Referral to: REFUSED REHAB REFERRAL - Medication Discharge Medications: Ambulatory Orders Amlodipine Besylate [Norvasc -] 5 mg PO DAILY 02/13/17 Aspirin [Amrita Chewable] 81 mg PO DAILY 02/13/17 Atorvastatin Ca [Lipitor] 20 mg PO HS 02/13/17 Duloxetine HCl [Cymbalta] 30 mg PO BID 02/13/17 Gabapentin 200 mg PO BID 02/13/17 Montelukast Na [Singulair -] 10 mg PO HS 02/13/17 Duloxetine HCl [Cymbalta -] 60 mg PO DAILY #30 cap 02/14/17 Ranitidine [Zantac -] 150 mg PO DAILY #30 mg 02/18/17 - Diagnosis (1) Drug-induced mood disorder Status: Acute (2) Opioid dependence with withdrawal Status: Acute (3) Use of cane as ambulatory aid Status: Chronic (4) Asthma Status: Chronic Qualifiers: Asthma severity: mild intermittent Asthma complication type: with status asthmaticus Qualified Code(s): J45.22 - Mild intermittent asthma with status asthmaticus (5) GERD (gastroesophageal reflux disease) Status: Chronic Qualifiers: Esophagitis presence: without esophagitis Qualified Code(s): K21.9 - Gastro-esophageal reflux disease without esophagitis (6) Hyperlipidemia Status: Chronic Qualifiers: Hyperlipidemia type: pure hypercholesterolemia Qualified Code(s): E78.00 - Pure hypercholesterolemia, unspecified; E78.0 - Pure hypercholesterolemia (7) Hypertension Status: Chronic Qualifiers: Hypertension type: essential hypertension Qualified Code(s): I10 - Essential (primary) hypertension (8) Neuropathy of leg Status: Chronic Qualifiers: Laterality: bilateral Qualified Code(s): G57.93 - Unspecified mononeuropathy of bilateral lower limbs - AMA Did Patient Leave Against Medical Advice: No
== END 2017-02-18 10:20 | disposition home or self-care (01) | DRG 897 ==
LOC: YASAS 18:04 → Y3N 19:45
PROVIDERS: ADMIT Internal Medicine; ATTEND Internal Medicine
PROC: HZ2ZZZZ Detoxification Services for Substance Abuse Treatment (ICD-10-PCS; principal; 2017-02-18)
DX: F11.23 Opioid dependence with withdrawal (principal); J45.22 Mild intermittent asthma with status asthmaticus; F15.10 Other stimulant abuse, uncomplicated; F19.24 Other psychoactive substance dependence with psychoactive substance-induced mood disorder; F32.9 Major depressive disorder, single episode, unspecified; I10 Essential (primary) hypertension; E78.00 Pure hypercholesterolemia, unspecified; K21.9 Gastro-esophageal reflux disease without esophagitis; G57.93 Unspecified mononeuropathy of bilateral lower limbs; E11.9 Type 2 diabetes mellitus without complications; B18.2 Chronic viral hepatitis C; R26.89 Other abnormalities of gait and mobility; Z99.89 Dependence on other enabling machines and devices
CPT/HCPCS: 36415; 80053; 81003; 81015; 85027; 86593; 87086; 87389; 93005; 93010

== ENCOUNTER 2018-12-28 09:28 | Inpatient (IN) | payer OTHER | END 2019-01-01 10:13 | disposition home or self-care (01) | LOC: YASAS 09:28 → Y6N 14:55 ==

== ENCOUNTER 2022-02-20 09:35 | Inpatient (IN) | payer OTHER ==
[2022-02-20 12:33] VITALS: BMI 19.3
[2022-02-20] MEDS ORDERED: LOPERAMIDE HCL 2 MG CAPSULE PO PRN (12:43)
[2022-02-20] MEDS ORDERED: BENZOCAINE/MENTHOL (CHLORASEPTIC ) LOZENGE MM PRN (12:43)
[2022-02-20] MEDS ORDERED: MAG HYDROX/AL HYDROX/SIMETH 30 ML UNIT-DOSE CUP PO PRN (12:43)
[2022-02-20] MEDS ORDERED: BISMUTH SUBSALICYLATE 524 MG/30 ML PO PRN (12:43)
[2022-02-20] MEDS ORDERED: IBUPROFEN 400 MG TABLET (FP) PO PRN (12:43)
[2022-02-20] MEDS ORDERED: ONDANSETRON *ODT* 4 MG TABLET SL PRN (12:43)
[2022-02-20] MEDS ORDERED: IBUPROFEN 600 MG TABLET (FP) PO PRN (12:43)
[2022-02-20] MEDS ORDERED: ACETAMINOPHEN 325 MG TABLET (FP) PO PRN ×2 (12:43)
[2022-02-20] MEDS ORDERED: MAGNESIUM CITRATE 300 ML BOTTLE PO PRN (12:43)
[2022-02-20] MEDS ORDERED: MAGNESIUM HYDROX 2400MG/30ML ORAL SUSPENSION 30 ML CUP PO PRN (12:43)
[2022-02-20] MEDS ORDERED: diazePAM 5 MG TABLET PO PRN (12:43)
[2022-02-20] MEDS ORDERED: NICOTINE 10 MG CARTRIDGE (INHALER) IH PRN (12:43)
[2022-02-20] MEDS ORDERED: DICYCLOMINE HCL 10 MG CAPSULE PO PRN (12:43)
[2022-02-20] MEDS ORDERED: ALBUTEROL SO4 HFA INHALER IH PRN (13:16)
[2022-02-20] MEDS: hydrOXYzine PAMOATE 25 MG CAPSULE (FP) PO SCH ×3 (14:10→22:50)
[2022-02-20] MEDS: CLINDAMYCIN HCL 150 MG CAPSULE (FP) PO SCH ×2 (14:10→22:50)
[2022-02-20] MEDS: diazePAM 5 MG TABLET PO SCH ×3 (14:10→23:00)
[2022-02-20] MEDS: NICOTINE 14 MG/24 HOURS TOPICAL PATCH TD SCH (14:11)
[2022-02-20] MEDS: PRENATAL VITAMINS W/ FOLIC ACID TABLET (FP) PO SCH (14:11)
[2022-02-20] MEDS: METHOCARBAMOL 500 MG TABLET PO PRN (18:18)
[2022-02-20] MEDS: ATORVASTATIN CA 20 MG TABLET (FP) PO SCH (22:49)
[2022-02-20] MEDS: MELATONIN 5 MG TABLETS PO SCH (22:49)
[2022-02-20] MEDS: THIAMINE HCL 100 MG TABLET (FP) PO SCH (22:49)
[2022-02-20] MEDS: MONTELUKAST NA 10 MG TABLET PO SCH (22:50)
[2022-02-20] MEDS: GABAPENTIN 100 MG CAPSULE PO SCH (22:50)
[2022-02-20] MEDS: MOMETASONE FUROATE 220 MCG/IH INHALER IH SCH (22:51)
[2022-02-21] MEDS: CLINDAMYCIN HCL 150 MG CAPSULE (FP) PO SCH ×3 (05:18→22:39)
[2022-02-21] MEDS: diazePAM 5 MG TABLET PO SCH ×4 (05:18→22:30)
[2022-02-21] MEDS: hydrOXYzine PAMOATE 25 MG CAPSULE (FP) PO SCH ×5 (05:18→22:30)
[2022-02-21] MEDS: GABAPENTIN 100 MG CAPSULE PO SCH ×2 (10:25→22:30)
[2022-02-21] MEDS: FAMOTIDINE 20 MG TABLET PO SCH (10:25)
[2022-02-21] MEDS: PRENATAL VITAMINS W/ FOLIC ACID TABLET (FP) PO SCH (10:25)
[2022-02-21] MEDS: LOSARTAN POTASSIUM 25 MG TABLET PO SCH (10:25)
[2022-02-21] MEDS: ASPIRIN 81 MG CHEWABLE TABLETS PO SCH (10:25)
[2022-02-21] MEDS: NICOTINE 14 MG/24 HOURS TOPICAL PATCH TD SCH (10:27)
[2022-02-21 11:49] LABS: HEMATOCRIT 39.6 % (32.4-45.2); MCH 30.9 pg (25.7-33.7); MCHC 32.8 g/dl (32.0-36.0); MEAN CELL VOLUME 94.3 fl (80-96); MEAN PLT VOLUME 7.6 fl (7.5-11.1); PLATELET COUNT 252 10^3/uL (134-434); RBC 4.21 M/mm3 (3.60-5.2); RDW 19.6 % (11.6-15.6); WHITE BLOOD COUNT 4.2 K/mm3 (4.0-10.0)
[2022-02-21 12:05] LABS: CALCIUM 9.3 mg/dL (8.5-10.1)
[2022-02-21 12:06] LABS: BLOOD UREA NITROGEN 11.7 mg/dL (7-18)
[2022-02-21 12:08] LABS: CREATININE 0.7 mg/dL (0.55-1.3)
[2022-02-21 12:10] LABS: BILIRUBIN,TOTAL 0.5 mg/dL (0.2-1); TOT PROT 7.5 g/dl (6.4-8.2)
[2022-02-21] MEDS: METHOCARBAMOL 500 MG TABLET PO PRN (17:42)
[2022-02-21] MEDS: MONTELUKAST NA 10 MG TABLET PO SCH (22:30)
[2022-02-21] MEDS: MELATONIN 5 MG TABLETS PO SCH (22:30)
[2022-02-21] MEDS: ATORVASTATIN CA 20 MG TABLET (FP) PO SCH (22:30)
[2022-02-21] MEDS: DULoxetine HCL 30 MG CAPSULE.DR PO SCH (22:30)
[2022-02-21] MEDS: THIAMINE HCL 100 MG TABLET (FP) PO SCH (22:30)
[2022-02-21] MEDS: MOMETASONE FUROATE 220 MCG/IH INHALER IH SCH (23:14)
[2022-02-22] MEDS: hydrOXYzine PAMOATE 25 MG CAPSULE (FP) PO SCH ×5 (05:33→22:54)
[2022-02-22] MEDS: CLINDAMYCIN HCL 150 MG CAPSULE (FP) PO SCH ×3 (05:33→22:53)
[2022-02-22] MEDS ORDERED: diazePAM 5 MG TABLET PO SCH (06:00)
[2022-02-22] MEDS ORDERED: chlordiazePOXIDE HCL 25 MG CAPSULE PO PRN (10:05)
[2022-02-22] MEDS: PRENATAL VITAMINS W/ FOLIC ACID TABLET (FP) PO SCH (10:35)
[2022-02-22] MEDS: ASPIRIN 81 MG CHEWABLE TABLETS PO SCH (10:35)
[2022-02-22] MEDS: GABAPENTIN 100 MG CAPSULE PO SCH ×2 (10:35→22:54)
[2022-02-22] MEDS: DULoxetine HCL 30 MG CAPSULE.DR PO SCH ×2 (10:35→22:54)
[2022-02-22] MEDS: LOSARTAN POTASSIUM 25 MG TABLET PO SCH (10:35)
[2022-02-22] MEDS: NICOTINE 14 MG/24 HOURS TOPICAL PATCH TD SCH (10:35)
[2022-02-22] MEDS: FAMOTIDINE 20 MG TABLET PO SCH (10:35)
[2022-02-22] MEDS: chlordiazePOXIDE HCL 25 MG CAPSULE PO SCH ×3 (10:37→22:53)
[2022-02-22] MEDS: MELATONIN 5 MG TABLETS PO SCH (22:53)
[2022-02-22] MEDS: THIAMINE HCL 100 MG TABLET (FP) PO SCH (22:54)
[2022-02-22] MEDS: MONTELUKAST NA 10 MG TABLET PO SCH (22:54)
[2022-02-22] MEDS: ATORVASTATIN CA 20 MG TABLET (FP) PO SCH (22:54)
[2022-02-22] MEDS: MOMETASONE FUROATE 220 MCG/IH INHALER IH SCH (22:57)
[2022-02-23] MEDS: hydrOXYzine PAMOATE 25 MG CAPSULE (FP) PO SCH ×4 (05:32→23:52)
[2022-02-23] MEDS: chlordiazePOXIDE HCL 25 MG CAPSULE PO SCH ×4 (05:32→22:29)
[2022-02-23] MEDS: CLINDAMYCIN HCL 150 MG CAPSULE (FP) PO SCH ×3 (05:32→22:27)
[2022-02-23] MEDS ORDERED: diazePAM 5 MG TABLET PO SCH (06:00)
[2022-02-23] MEDS: PRENATAL VITAMINS W/ FOLIC ACID TABLET (FP) PO SCH (11:00)
[2022-02-23] MEDS: GABAPENTIN 100 MG CAPSULE PO SCH ×2 (11:00→22:27)
[2022-02-23] MEDS: ASPIRIN 81 MG CHEWABLE TABLETS PO SCH (11:00)
[2022-02-23] MEDS: DULoxetine HCL 30 MG CAPSULE.DR PO SCH ×2 (11:01→22:28)
[2022-02-23] MEDS: NICOTINE 14 MG/24 HOURS TOPICAL PATCH TD SCH (11:01)
[2022-02-23] MEDS: FAMOTIDINE 20 MG TABLET PO SCH (11:01)
[2022-02-23] MEDS: LOSARTAN POTASSIUM 25 MG TABLET PO SCH (11:05)
[2022-02-23] MEDS: THIAMINE HCL 100 MG TABLET (FP) PO SCH (22:27)
[2022-02-23] MEDS: MONTELUKAST NA 10 MG TABLET PO SCH (22:27)
[2022-02-23] MEDS: ATORVASTATIN CA 20 MG TABLET (FP) PO SCH (22:27)
[2022-02-23] MEDS: MELATONIN 5 MG TABLETS PO SCH (22:29)
[2022-02-23] MEDS: MOMETASONE FUROATE 220 MCG/IH INHALER IH SCH (22:32)
[2022-02-24] MEDS ORDERED: diazePAM 5 MG TABLET PO ONE (06:00)
[2022-02-24] MEDS: CLINDAMYCIN HCL 150 MG CAPSULE (FP) PO SCH ×3 (06:04→22:15)
[2022-02-24] MEDS: hydrOXYzine PAMOATE 25 MG CAPSULE (FP) PO SCH ×5 (06:04→22:15)
[2022-02-24] MEDS: chlordiazePOXIDE HCL 25 MG CAPSULE PO SCH ×4 (06:04→22:17)
[2022-02-24] MEDS: PRENATAL VITAMINS W/ FOLIC ACID TABLET (FP) PO SCH (10:51)
[2022-02-24] MEDS: ASPIRIN 81 MG CHEWABLE TABLETS PO SCH (10:51)
[2022-02-24] MEDS: FAMOTIDINE 20 MG TABLET PO SCH (10:51)
[2022-02-24] MEDS: GABAPENTIN 100 MG CAPSULE PO SCH ×2 (10:51→22:16)
[2022-02-24] MEDS: DULoxetine HCL 30 MG CAPSULE.DR PO SCH ×2 (10:52→22:16)
[2022-02-24] MEDS: NICOTINE 14 MG/24 HOURS TOPICAL PATCH TD SCH (10:54)
[2022-02-24] MEDS: LOSARTAN POTASSIUM 25 MG TABLET PO SCH (12:07)
[2022-02-24] MEDS: METHOCARBAMOL 500 MG TABLET PO PRN (18:07)
[2022-02-24] MEDS: ATORVASTATIN CA 20 MG TABLET (FP) PO SCH (22:15)
[2022-02-24] MEDS: MELATONIN 5 MG TABLETS PO SCH (22:15)
[2022-02-24] MEDS: THIAMINE HCL 100 MG TABLET (FP) PO SCH (22:15)
[2022-02-24] MEDS: MONTELUKAST NA 10 MG TABLET PO SCH (22:15)
[2022-02-24] MEDS: MOMETASONE FUROATE 220 MCG/IH INHALER IH SCH (22:47)
[2022-02-25] MEDS ORDERED: chlordiazePOXIDE HCL 10 MG CAPSULE PO PRN
[2022-02-25] MEDS: chlordiazePOXIDE HCL 10 MG CAPSULE PO SCH ×2 (06:00→10:32)
[2022-02-25] MEDS: hydrOXYzine PAMOATE 25 MG CAPSULE (FP) PO SCH ×3 (06:00→14:34)
[2022-02-25] MEDS: CLINDAMYCIN HCL 150 MG CAPSULE (FP) PO SCH ×2 (06:00→14:34)
[2022-02-25] MEDS: GABAPENTIN 100 MG CAPSULE PO SCH (10:31)
[2022-02-25] MEDS: DULoxetine HCL 30 MG CAPSULE.DR PO SCH (10:32)
[2022-02-25] MEDS: LOSARTAN POTASSIUM 25 MG TABLET PO SCH (10:32)
[2022-02-25] MEDS: PRENATAL VITAMINS W/ FOLIC ACID TABLET (FP) PO SCH (10:32)
[2022-02-25] MEDS: ASPIRIN 81 MG CHEWABLE TABLETS PO SCH (10:32)
[2022-02-25] MEDS: FAMOTIDINE 20 MG TABLET PO SCH (10:32)
[2022-02-25] MEDS: NICOTINE 14 MG/24 HOURS TOPICAL PATCH TD SCH (10:34)
[2022-02-25 13:13] VITALS: BP 114/70; PULSE 86; RESP 17; TEMP 97.7
[2022-02-26] MEDS ORDERED: chlordiazePOXIDE HCL 10 MG CAPSULE PO SCH (05:00)
[2022-02-27] MEDS ORDERED: chlordiazePOXIDE HCL 10 MG CAPSULE PO ONE (05:00)
== END 2022-02-25 16:00 | disposition left against medical advice (07) | DRG 894 ==
LOC: YASAS 09:35 → Y6N 13:20
PROVIDERS: ADMIT Allergy & Immunology; ATTEND Surgery
PROC: HZ2ZZZZ Detoxification Services for Substance Abuse Treatment (ICD-10-PCS; principal; 2022-02-20)
DX: F10.230 Alcohol dependence with withdrawal, uncomplicated (principal); F19.280 Other psychoactive substance dependence with psychoactive substance-induced anxiety disorder; F19.282 Other psychoactive substance dependence with psychoactive substance-induced sleep disorder; F12.20 Cannabis dependence, uncomplicated; F19.24 Other psychoactive substance dependence with psychoactive substance-induced mood disorder; F32.A Depression, unspecified; G62.9 Polyneuropathy, unspecified; J45.20 Mild intermittent asthma, uncomplicated; K21.9 Gastro-esophageal reflux disease without esophagitis; E78.00 Pure hypercholesterolemia, unspecified; Z85.3 Personal history of malignant neoplasm of breast; Z91.040 Latex allergy status; Z99.89 Dependence on other enabling machines and devices
CPT/HCPCS: 36415; 80053; 82962; 85027; 86780; 93005; 93010; C9803-CS; Q0162; U0003; U0005

== ENCOUNTER 2022-03-23 07:47 | Inpatient (IN) | payer OTHER ==
[2022-03-22] MEDS: chlordiazePOXIDE HCL 25 MG CAPSULE PO SCH (23:58)
[2022-03-22] MEDS: GABAPENTIN 100 MG CAPSULE PO SCH (23:59)
[2022-03-22] MEDS: MONTELUKAST NA 10 MG TABLET PO SCH (23:59)
[2022-03-22] MEDS: THIAMINE HCL 100 MG TABLET (FP) PO SCH (23:59)
[2022-03-22] MEDS: ATORVASTATIN CA 20 MG TABLET (FP) PO SCH (23:59)
[2022-03-23] MEDS: LOSARTAN POTASSIUM 25 MG TABLET PO SCH ×2 (00:08→12:00)
[2022-03-23] MEDS: chlordiazePOXIDE HCL 25 MG CAPSULE PO SCH ×4 (05:36→22:34)
[2022-03-23] MEDS: hydrOXYzine PAMOATE 25 MG CAPSULE (FP) PO PRN ×2 (05:36→10:14)
[~2022-03-23 07:47] MED LIST: ACETAMINOPHEN 325 MG TABLET (FP) PO PRN; ALBUTEROL SO4 HFA INHALER IH PRN; BENZOCAINE/MENTHOL (CHLORASEPTIC ) LOZENGE MM PRN; BISMUTH SUBSALICYLATE 524 MG/30 ML PO PRN; DICYCLOMINE HCL 10 MG CAPSULE PO PRN; IBUPROFEN 400 MG TABLET (FP) PO PRN; IBUPROFEN 600 MG TABLET (FP) PO PRN; LOPERAMIDE HCL 2 MG CAPSULE PO PRN; MAG HYDROX/AL HYDROX/SIMETH 30 ML UNIT-DOSE CUP PO PRN; MAGNESIUM CITRATE 300 ML BOTTLE PO PRN; MAGNESIUM HYDROX 2400MG/30ML ORAL SUSPENSION 30 ML CUP PO PRN; P-EPHED 60MG/TRIPROLIDI 2.5MG TABLET PO PRN; chlordiazePOXIDE HCL 25 MG CAPSULE ONE; chlordiazePOXIDE HCL 25 MG CAPSULE PO ONE; chlordiazePOXIDE HCL 25 MG CAPSULE PO PRN; cloNIDine HCL 0.1 MG TABLET ONE; cloNIDine HCL 0.1 MG TABLET PO ONE; guaiFENesin 200 MG/10 ML 10 ML UNIT-DOSE CUPS PO PRN; hydrOXYzine PAMOATE 25 MG CAPSULE (FP) PO ONE
[2022-03-23] MEDS: ASPIRIN 81 MG CHEWABLE TABLETS PO SCH (10:13)
[2022-03-23] MEDS: GABAPENTIN 100 MG CAPSULE PO SCH ×2 (10:14→22:34)
[2022-03-23] MEDS: METHOCARBAMOL 500 MG TABLET PO PRN (10:14)
[2022-03-23] MEDS: PRENATAL VITAMINS W/ FOLIC ACID TABLET (FP) PO SCH (10:15)
[2022-03-23 16:53] LABS: BASO % 0.5 % (0-2.0); EOS % 2.5 % (0-4.5); HEMATOCRIT 37.4 % (32.4-45.2); HEMOGLOBIN 12.1 GM/dL (10.7-15.3); LYMPH % 32.2 % (8-40); MCH 30.9 pg (25.7-33.7); MCHC 32.2 g/dl (32.0-36.0); MEAN CELL VOLUME 95.9 fl (80-96); MEAN PLT VOLUME 8.4 fl (7.5-11.1); NEUT % 57.8 % (42.8-82.8); PLATELET COUNT 174 10^3/uL (134-434); RDW 17.3 % (11.6-15.6)
[2022-03-23 17:12] LABS: CALCIUM 8.8 mg/dL (8.5-10.1)
[2022-03-23 17:13] LABS: ALBUMIN 3.9 g/dl (3.4-5.0)
[2022-03-23 17:16] LABS: BLOOD UREA NITROGEN 11.3 mg/dL (7-18); CREATININE 0.8 mg/dL (0.55-1.3)
[2022-03-23 17:18] LABS: TOT PROT 7.4 g/dl (6.4-8.2)
[2022-03-23] MEDS: DULoxetine HCL 30 MG CAPSULE.DR PO SCH (22:34)
[2022-03-23] MEDS: ATORVASTATIN CA 20 MG TABLET (FP) PO SCH (22:34)
[2022-03-23] MEDS: ONDANSETRON *ODT* 4 MG TABLET SL PRN (22:34)
[2022-03-23] MEDS: MELATONIN 5 MG TABLETS PO PRN (22:34)
[2022-03-23] MEDS: MONTELUKAST NA 10 MG TABLET PO SCH (22:34)
[2022-03-23] MEDS: THIAMINE HCL 100 MG TABLET (FP) PO SCH (22:34)
[2022-03-23] MEDS: MOMETASONE FUROATE 220 MCG/IH INHALER IH SCH (23:33)
[2022-03-24] MEDS: chlordiazePOXIDE HCL 25 MG CAPSULE PO SCH ×4 (05:26→22:20)
[2022-03-24] MEDS: GABAPENTIN 100 MG CAPSULE PO SCH ×2 (10:33→22:20)
[2022-03-24] MEDS: LOSARTAN POTASSIUM 25 MG TABLET PO SCH (10:33)
[2022-03-24] MEDS: PRENATAL VITAMINS W/ FOLIC ACID TABLET (FP) PO SCH (10:33)
[2022-03-24] MEDS: DULoxetine HCL 30 MG CAPSULE.DR PO SCH ×2 (10:34→22:20)
[2022-03-24] MEDS: ASPIRIN 81 MG CHEWABLE TABLETS PO SCH (10:34)
[2022-03-24] MEDS: PANTOPRAZOLE 20 MG TABLET PO SCH (13:52)
[2022-03-24] MEDS: hydrOXYzine PAMOATE 25 MG CAPSULE (FP) PO PRN (18:31)
[2022-03-24] MEDS: MOMETASONE FUROATE 220 MCG/IH INHALER IH SCH (22:19)
[2022-03-24] MEDS: MONTELUKAST NA 10 MG TABLET PO SCH (22:20)
[2022-03-24] MEDS: THIAMINE HCL 100 MG TABLET (FP) PO SCH (22:20)
[2022-03-24] MEDS: ATORVASTATIN CA 20 MG TABLET (FP) PO SCH (22:20)
[2022-03-24] MEDS: MELATONIN 5 MG TABLETS PO PRN (22:20)
[2022-03-25] MEDS ORDERED: chlordiazePOXIDE HCL 10 MG CAPSULE PO PRN
[2022-03-25] MEDS: chlordiazePOXIDE HCL 10 MG CAPSULE PO SCH ×4 (05:48→22:17)
[2022-03-25] MEDS: METHOCARBAMOL 500 MG TABLET PO PRN (05:50)
[2022-03-25] MEDS: ASPIRIN 81 MG CHEWABLE TABLETS PO SCH (10:34)
[2022-03-25] MEDS: GABAPENTIN 100 MG CAPSULE PO SCH ×2 (10:34→21:01)
[2022-03-25] MEDS: PANTOPRAZOLE 20 MG TABLET PO SCH (10:34)
[2022-03-25] MEDS: LOSARTAN POTASSIUM 25 MG TABLET PO SCH (10:34)
[2022-03-25] MEDS: DULoxetine HCL 30 MG CAPSULE.DR PO SCH ×2 (10:34→21:01)
[2022-03-25] MEDS: PRENATAL VITAMINS W/ FOLIC ACID TABLET (FP) PO SCH (10:35)
[2022-03-25] MEDS: hydrOXYzine PAMOATE 25 MG CAPSULE (FP) PO PRN ×2 (17:52→21:01)
[2022-03-25] MEDS: ATORVASTATIN CA 20 MG TABLET (FP) PO SCH (22:17)
[2022-03-25] MEDS: MONTELUKAST NA 10 MG TABLET PO SCH (22:17)
[2022-03-25] MEDS: MOMETASONE FUROATE 220 MCG/IH INHALER IH SCH (22:17)
[2022-03-25] MEDS: THIAMINE HCL 100 MG TABLET (FP) PO SCH (22:17)
[2022-03-26] MEDS ORDERED: chlordiazePOXIDE 5 MG CAPSULE ONE (04:26)
[2022-03-26] MEDS: chlordiazePOXIDE HCL 10 MG CAPSULE PO SCH ×2 (06:12→17:47)
[2022-03-26] MEDS: METHOCARBAMOL 500 MG TABLET PO PRN ×2 (06:14→17:48)
[2022-03-26] MEDS: DULoxetine HCL 30 MG CAPSULE.DR PO SCH ×2 (10:39→22:43)
[2022-03-26] MEDS: GABAPENTIN 100 MG CAPSULE PO SCH ×2 (10:40→22:44)
[2022-03-26] MEDS: ASPIRIN 81 MG CHEWABLE TABLETS PO SCH (10:40)
[2022-03-26] MEDS: PRENATAL VITAMINS W/ FOLIC ACID TABLET (FP) PO SCH (10:40)
[2022-03-26] MEDS: PANTOPRAZOLE 20 MG TABLET PO SCH (10:40)
[2022-03-26] MEDS: LOSARTAN POTASSIUM 25 MG TABLET PO SCH (10:40)
[2022-03-26] MEDS: hydrOXYzine PAMOATE 25 MG CAPSULE (FP) PO PRN (17:48)
[2022-03-26] MEDS: ONDANSETRON *ODT* 4 MG TABLET SL PRN (18:59)
[2022-03-26] MEDS: MELATONIN 5 MG TABLETS PO PRN (22:42)
[2022-03-26] MEDS: ATORVASTATIN CA 20 MG TABLET (FP) PO SCH (22:43)
[2022-03-26] MEDS: MONTELUKAST NA 10 MG TABLET PO SCH (22:44)
[2022-03-26] MEDS: THIAMINE HCL 100 MG TABLET (FP) PO SCH (22:44)
[2022-03-26] MEDS: MOMETASONE FUROATE 220 MCG/IH INHALER IH SCH (22:44)
[2022-03-27] MEDS ORDERED: chlordiazePOXIDE HCL 10 MG CAPSULE PO ONE (05:00)
[2022-03-27] MEDS: METHOCARBAMOL 500 MG TABLET PO PRN (06:11)
[2022-03-27 07:29] VITALS: RESP 18
[2022-03-27 08:56] VITALS: BP 132/78; PULSE 64; TEMP 98.3
[2022-03-27] MEDS: LOSARTAN POTASSIUM 25 MG TABLET PO SCH (09:55)
[2022-03-27] MEDS: PANTOPRAZOLE 20 MG TABLET PO SCH (09:55)
[2022-03-27] MEDS: PRENATAL VITAMINS W/ FOLIC ACID TABLET (FP) PO SCH (09:55)
[2022-03-27] MEDS: ASPIRIN 81 MG CHEWABLE TABLETS PO SCH (09:56)
[2022-03-27] MEDS: DULoxetine HCL 30 MG CAPSULE.DR PO SCH (09:56)
[2022-03-27] MEDS: GABAPENTIN 100 MG CAPSULE PO SCH (09:56)
== END 2022-03-27 10:50 | disposition home or self-care (01) | DRG 897 ==
LOC: YASAS 07:47 → Y6N 09:05 → Y3N 09:19
PROVIDERS: ADMIT Allergy & Immunology; ATTEND Surgery
PROC: HZ2ZZZZ Detoxification Services for Substance Abuse Treatment (ICD-10-PCS; principal; 2022-03-23)
DX: F10.230 Alcohol dependence with withdrawal, uncomplicated (principal); F12.20 Cannabis dependence, uncomplicated; F19.24 Other psychoactive substance dependence with psychoactive substance-induced mood disorder; F41.8 Other specified anxiety disorders; F32.A Depression, unspecified; F43.10 Post-traumatic stress disorder, unspecified; G62.9 Polyneuropathy, unspecified; J45.20 Mild intermittent asthma, uncomplicated; M19.90 Unspecified osteoarthritis, unspecified site; R63.4 Abnormal weight loss; Z68.20 Body mass index [BMI] 20.0-20.9, adult; Z85.3 Personal history of malignant neoplasm of breast; Z91.040 Latex allergy status; Z91.018 Allergy to other foods
CPT/HCPCS: 36415; 80053; 85025; 86780; C9803-CS; J0735; Q0162; U0003; U0005

== ENCOUNTER 2023-07-31 10:16 | Inpatient (IN) | payer OTHER ==
[2023-07-31 11:12] VITALS: BMI 21.6
[2023-07-31] MEDS ORDERED: IBUPROFEN 600 MG TABLET (FP) PO PRN (12:02)
[2023-07-31] MEDS ORDERED: MAGNESIUM HYDROX 2400MG/30ML ORAL SUSPENSION 30 ML CUP PO PRN (12:02)
[2023-07-31] MEDS ORDERED: BISMUTH SUBSALICYLATE 262 MG/15 ML BTL PO PRN (12:02)
[2023-07-31] MEDS ORDERED: BENZONATATE 200 MG CAPSULE PO PRN (12:02)
[2023-07-31] MEDS ORDERED: LOPERAMIDE HCL 2 MG CAPSULE PO PRN (12:02)
[2023-07-31] MEDS ORDERED: guaiFENesin 600 MG TABLET.ER (FP) PO PRN (12:02)
[2023-07-31] MEDS ORDERED: POLYETHYLENE GLYCOL (HEALTHYLAX) 3350 17 GM PACKET PO PRN (12:02)
[2023-07-31] MEDS ORDERED: MAG HYDROX/AL HYDROX/SIMETH 30 ML UNIT-DOSE CUP PO PRN (12:02)
[2023-07-31] MEDS ORDERED: BENZOCAINE/MENTHOL (CHLORASEPTIC ) LOZENGE MM PRN (12:02)
[2023-07-31] MEDS ORDERED: NALOXONE HCL (KLOXXADO) 8 MG SPRAY NS PRN (12:02)
[2023-07-31] MEDS ORDERED: NALOXONE HCL 0.4 MG/ML VIAL IM PRN (12:02)
[2023-07-31] MEDS ORDERED: IBUPROFEN 400 MG TABLET (FP) PO PRN (12:02)
[2023-07-31] MEDS ORDERED: ACETAMINOPHEN 325 MG TABLET (FP) PO PRN (12:02)
[2023-07-31] MEDS: ONDANSETRON *ODT* 4 MG TABLET SL PRN (13:27)
[2023-07-31] MEDS ORDERED: ONDANSETRON *ODT* 4 MG TABLET ONE (13:44)
[2023-07-31] MEDS ORDERED: diazePAM 5 MG TABLET PO PRN (15:21)
[2023-07-31] MEDS ORDERED: ALBUTEROL SO4 HFA INHALER IH PRN (15:22)
[2023-07-31] MEDS: INSULIN SLIDING SCALE (NOVOLOG) 1 VIAL SQ SCH (16:02)
[2023-07-31] MEDS: PANTOPRAZOLE 40 MG TABLET PO SCH (16:06)
[2023-07-31] MEDS ORDERED: diazePAM 5 MG TABLET PO SCH (17:00)
[2023-07-31] MEDS: chlordiazePOXIDE HCL 25 MG CAPSULE PO SCH ×2 (17:02→22:31)
[2023-07-31] MEDS ORDERED: chlordiazePOXIDE HCL 25 MG CAPSULE PO PRN (17:06)
[2023-07-31] MEDS: ATORVASTATIN CA 20 MG TABLET (FP) PO SCH (22:30)
[2023-07-31] MEDS: MONTELUKAST NA 10 MG TABLET PO SCH (22:30)
[2023-07-31] MEDS: THIAMINE HCL 100 MG TABLET (FP) PO SCH (22:30)
[2023-07-31] MEDS: GABAPENTIN 300 MG CAPSULE PO SCH (22:30)
[2023-07-31] MEDS: MELATONIN 5 MG TABLETS PO SCH (22:30)
[2023-08-01] MEDS: GABAPENTIN 300 MG CAPSULE PO SCH ×3 (05:46→22:52)
[2023-08-01] MEDS: chlordiazePOXIDE HCL 25 MG CAPSULE PO SCH ×4 (05:46→22:53)
[2023-08-01] MEDS: INSULIN SLIDING SCALE (NOVOLOG) 1 VIAL SQ SCH ×2 (08:00→17:14)
[2023-08-01 10:22] LABS: HEMATOCRIT 39.4 % (32.4-45.2); HEMOGLOBIN 12.5 GM/dL (10.7-15.3); MCH 27.9 pg (25.7-33.7); MCHC 31.8 g/dl (32.0-36.0); MEAN CELL VOLUME 87.5 fl (80-96); MEAN PLT VOLUME 8.8 fl (7.5-11.1); PLATELET COUNT 282 10^3/uL (134-434); RBC 4.51 M/mm3 (3.60-5.2); RDW 15.7 % (11.6-15.6); WHITE BLOOD COUNT 5.8 K/mm3 (4.0-10.0)
[2023-08-01 10:26] LABS: POTASSIUM 4.2 mmol/L (3.5-5.1)
[2023-08-01 10:32] LABS: CALCIUM 9.1 mg/dL (8.5-10.1)
[2023-08-01 10:33] LABS: ALBUMIN 4.1 g/dl (3.4-5.0); BLOOD UREA NITROGEN 14.7 mg/dL (7-18)
[2023-08-01 10:35] LABS: BILIRUBIN,TOTAL 0.4 mg/dL (0.2-1); CREATININE 0.9 mg/dL (0.55-1.3)
[2023-08-01 10:37] LABS: TOT PROT 7.8 g/dl (6.4-8.2)
[2023-08-01] MEDS: PRENATAL VITAMINS W/ FOLIC ACID TABLET (FP) PO SCH (10:44)
[2023-08-01] MEDS: DULoxetine HCL 60 MG CAPSULE.DR PO SCH (10:45)
[2023-08-01] MEDS: PANTOPRAZOLE 40 MG TABLET PO SCH (10:45)
[2023-08-01] MEDS: ASPIRIN 81 MG CHEWABLE TABLETS PO SCH (10:45)
[2023-08-01] MEDS: ONDANSETRON *ODT* 4 MG TABLET SL PRN ×2 (12:23→22:52)
[2023-08-01] MEDS: hydrOXYzine PAMOATE 25 MG CAPSULE (FP) PO PRN ×2 (12:46→18:17)
[2023-08-01] MEDS: TRIMETHOBENZAMIDE HCL 200MG/2ML INJ IM PRN (13:34)
[2023-08-01] MEDS: ATORVASTATIN CA 20 MG TABLET (FP) PO SCH (22:52)
[2023-08-01] MEDS: THIAMINE HCL 100 MG TABLET (FP) PO SCH (22:52)
[2023-08-01] MEDS: MELATONIN 5 MG TABLETS PO SCH (22:52)
[2023-08-01] MEDS: MONTELUKAST NA 10 MG TABLET PO SCH (22:52)
[2023-08-02] MEDS: GABAPENTIN 300 MG CAPSULE PO SCH ×3 (06:00→22:38)
[2023-08-02] MEDS: chlordiazePOXIDE HCL 25 MG CAPSULE PO SCH ×4 (06:00→22:39)
[2023-08-02] MEDS ORDERED: diazePAM 5 MG TABLET PO SCH (06:00)
[2023-08-02] MEDS: hydrOXYzine PAMOATE 25 MG CAPSULE (FP) PO PRN ×3 (06:06→22:39)
[2023-08-02] MEDS: ONDANSETRON *ODT* 4 MG TABLET SL PRN (06:06)
[2023-08-02] MEDS: INSULIN SLIDING SCALE (NOVOLOG) 1 VIAL SQ SCH ×2 (06:08→16:30)
[2023-08-02] MEDS: ASPIRIN 81 MG CHEWABLE TABLETS PO SCH (10:31)
[2023-08-02] MEDS: DULoxetine HCL 60 MG CAPSULE.DR PO SCH (10:32)
[2023-08-02] MEDS: PANTOPRAZOLE 40 MG TABLET PO SCH (10:32)
[2023-08-02] MEDS: PRENATAL VITAMINS W/ FOLIC ACID TABLET (FP) PO SCH (10:32)
[2023-08-02] MEDS ORDERED: hydrOXYzine PAMOATE 25 MG CAPSULE (FP) PO ONE (11:33)
[2023-08-02] MEDS: MELATONIN 5 MG TABLETS PO SCH (22:38)
[2023-08-02] MEDS: ATORVASTATIN CA 20 MG TABLET (FP) PO SCH (22:38)
[2023-08-02] MEDS: MONTELUKAST NA 10 MG TABLET PO SCH (22:39)
[2023-08-02] MEDS: THIAMINE HCL 100 MG TABLET (FP) PO SCH (22:41)
[2023-08-03] MEDS ORDERED: chlordiazePOXIDE HCL 10 MG CAPSULE PO PRN
[2023-08-03] MEDS: chlordiazePOXIDE HCL 10 MG CAPSULE PO SCH ×2 (05:50→10:17)
[2023-08-03] MEDS: GABAPENTIN 300 MG CAPSULE PO SCH ×3 (05:52→22:33)
[2023-08-03] MEDS: hydrOXYzine PAMOATE 25 MG CAPSULE (FP) PO PRN ×2 (05:54→10:20)
[2023-08-03] MEDS ORDERED: diazePAM 5 MG TABLET PO SCH (06:00)
[2023-08-03] MEDS: INSULIN SLIDING SCALE (NOVOLOG) 1 VIAL SQ SCH (06:12)
[2023-08-03] MEDS: ASPIRIN 81 MG CHEWABLE TABLETS PO SCH (10:16)
[2023-08-03] MEDS: PRENATAL VITAMINS W/ FOLIC ACID TABLET (FP) PO SCH (10:16)
[2023-08-03] MEDS: DULoxetine HCL 60 MG CAPSULE.DR PO SCH (10:17)
[2023-08-03] MEDS: PANTOPRAZOLE 40 MG TABLET PO SCH (10:17)
[2023-08-03] MEDS: ONDANSETRON *ODT* 4 MG TABLET SL PRN (12:36)
[2023-08-03] MEDS: diazePAM 5 MG TABLET PO SCH ×2 (14:09→23:58)
[2023-08-03] MEDS: TRIMETHOBENZAMIDE HCL 200MG/2ML INJ IM PRN (14:46)
[2023-08-03] MEDS: ATORVASTATIN CA 20 MG TABLET (FP) PO SCH (22:32)
[2023-08-03] MEDS: THIAMINE HCL 100 MG TABLET (FP) PO SCH (22:33)
[2023-08-03] MEDS: MONTELUKAST NA 10 MG TABLET PO SCH (22:33)
[2023-08-03] MEDS: MELATONIN 5 MG TABLETS PO SCH (22:33)
[2023-08-04] MEDS ORDERED: diazePAM 5 MG TABLET PO SCH ×2 (05:00→22:00)
[2023-08-04] MEDS ORDERED: chlordiazePOXIDE HCL 10 MG CAPSULE PO SCH (05:00)
[2023-08-04] MEDS: GABAPENTIN 300 MG CAPSULE PO SCH (05:17)
[2023-08-04] MEDS: hydrOXYzine PAMOATE 25 MG CAPSULE (FP) PO PRN (05:19)
[2023-08-04] MEDS ORDERED: diazePAM 5 MG TABLET PO ONE ×2 (06:00→11:00)
[2023-08-04 09:28] VITALS: PULSE 82; RESP 18; TEMP 97.5
[2023-08-04] MEDS: PANTOPRAZOLE 40 MG TABLET PO SCH (10:09)
[2023-08-04] MEDS: ASPIRIN 81 MG CHEWABLE TABLETS PO SCH (10:09)
[2023-08-04] MEDS: PRENATAL VITAMINS W/ FOLIC ACID TABLET (FP) PO SCH (10:10)
[2023-08-04] MEDS: DULoxetine HCL 60 MG CAPSULE.DR PO SCH (10:10)
[2023-08-04 12:25] VITALS: BP 142/91
[2023-08-05] MEDS ORDERED: chlordiazePOXIDE HCL 10 MG CAPSULE PO ONE (05:00)
[2023-08-05] MEDS ORDERED: diazePAM 5 MG TABLET PO ONE (06:00)
== END 2023-08-04 10:30 | disposition home or self-care (01) | DRG 897 ==
LOC: YASAS 10:16 → Y6N 12:22
PROVIDERS: ADMIT Allergy & Immunology; ATTEND Surgery
PROC: HZ2ZZZZ Detoxification Services for Substance Abuse Treatment (ICD-10-PCS; principal; 2023-07-31)
DX: F10.230 Alcohol dependence with withdrawal, uncomplicated (principal); F13.20 Sedative, hypnotic or anxiolytic dependence, uncomplicated; F12.20 Cannabis dependence, uncomplicated; F10.282 Alcohol dependence with alcohol-induced sleep disorder; F10.280 Alcohol dependence with alcohol-induced anxiety disorder; E78.00 Pure hypercholesterolemia, unspecified; J30.9 Allergic rhinitis, unspecified; J45.20 Mild intermittent asthma, uncomplicated; K21.9 Gastro-esophageal reflux disease without esophagitis; Z85.3 Personal history of malignant neoplasm of breast
CPT/HCPCS: 36415; 80053; 80307; 82962; 83036; 85027; 86780; 87635; 93005; 93010; Q0162